=== PATIENT | female | born 1945 | race Caucasian/White ===

== ENCOUNTER → 2022-11-27 | Outpatient (CLI) | payer MEDICARE | LOC: COL.RAD 16:28 | DX: M43.16 Spondylolisthesis, lumbar region (principal); M16.0 Bilateral primary osteoarthritis of hip; M85.88 Other specified disorders of bone density and structure, other site; M50.30 Other cervical disc degeneration, unspecified cervical region ==

== ENCOUNTER → 2022-12-15 | Outpatient (CLI) | payer MEDICARE | LOC: MHCPAIN 15:37 | DX: M54.50 Low back pain, unspecified (principal); M16.0 Bilateral primary osteoarthritis of hip; M50.30 Other cervical disc degeneration, unspecified cervical region; R25.1 Tremor, unspecified; R29.2 Abnormal reflex; M48.54XA Collapsed vertebra, not elsewhere classified, thoracic region, initial encounter for fracture | CPT/HCPCS: G0463 ==

== ENCOUNTER → 2022-12-30 | Outpatient (CLI) | payer MEDICARE ==
[~2022-12-30] VITALS: Ht 160 cm; Wt 131.5 kg
[2022-12-30] VITALS (7 sets, daily range): BP systolic 182–249; BP diastolic 94–112; PULSE 56–86; TEMP 98
[~2022-12-30] MED LIST: COREG 25MG25 MG/TAB PO; COZAAR100 MG PO; PERCOCET 325 MG1 TA2 PO; SINEMET 25/101 UDTAB PO
== END ==
LOC: COL.RAD 11:54
DX: M48.02 Spinal stenosis, cervical region (principal); S22.088A Other fracture of T11-T12 vertebra, initial encounter for closed fracture; M48.061 Spinal stenosis, lumbar region without neurogenic claudication; M47.816 Spondylosis without myelopathy or radiculopathy, lumbar region; M47.817 Spondylosis without myelopathy or radiculopathy, lumbosacral region; X58.XXXA Exposure to other specified factors, initial encounter
CPT/HCPCS: A9575; J2370; J2704; J3010

== ENCOUNTER 2023-04-05 13:30 | Outpatient (RCR) | payer MEDICARE | END 2023-04-05 15:00 | disposition home or self-care (01) | LOC: WSPT 13:30 | DX: M54.50 Low back pain, unspecified (principal) ==